=== PATIENT | male | born 1990 | race Caucasian/White ===

== ENCOUNTER 2018-08-30 21:47 | Emergency (ER) | payer BC, OTHER ==
--- NOTE | 2018-08-30 22:26 | ED Physician Documentation ---
Abdominal Pain - HISTORIAN Historian: patient - HPI Stated Complaint: RLQ pain Chief Complaint: Abdominal Pain Additonal Information: Patient presents to ED with complaints of RLQ abdominal pain since 0400 today. Patient states when he woke up this morning he had the pain and some mild nausea. The pain has not went away, it has not improved. He states the pain is worse with walking. He denies fever or chills. No previous surgeries. Onset: hours (16) Duration: constant Timing: still present Context: denies: out of country travel, bad food Severity: moderate Quality: pain, aching Associated Symptoms: nausea. denies: fever, chills, vomiting, diarrhea Exacerbated by: walking Relieved by: remaining still - ROS CONST: no problems GI/: none CVS/RESP: none EYES/ENT: none MS/SKIN/LYMPH: none NEURO/PSYCH: none - SOCIAL HX Smoking History: non-smoker Alcohol Use: none Drug Use: none - FAMILY HX Family History: none - PAST HX Past History: none Ischemic Bowel Risk Factors: none Other History: none Surgeries/Procedures: none Home Medications: Ambulatory Orders Medication Instructions Recorded NK 03/27/16 Allergies/Adverse Reactions: Allergies Allergy/AdvReac Type Severity Reaction Status Date / Time No Known Allergies Allergy Verified 08/30/18 22:02 - VITAL SIGNS Vital Signs: Vital Signs Temp Pulse Resp BP Pulse Ox 98.7 F 68 18 132/75 96 08/30/18 21:57 08/30/18 21:57 08/30/18 21:57 08/30/18 21:57 08/30/18 21:57 - REVIEWED ASSESSMENTS Nursing Assessment Reviewed: Yes Vitals Reviewed: Yes Progress - Results/Orders Results/Orders: UA - no blood, negative for infection - Progress Progress: 2320 Discussed results with Patient and the need for transfer for surgery. [facility] is their choice. 2334 Discussed with user support analyst supervisor, Rubalcava, for transfer 2339 Lunchroom Food Service Supervisor, Rubalcava, returned call. Dr. Joseph, Surgeon will accept patient. Strict NPO 2340 Discussed with patient, he wishes to go by private vehicle. ED Results Lab/Radiology - Lab Results Lab Results: Lab Results 08/30/18 08/30/18 08/30/18 22:22 22:22 22:05 WBC 8.60 K/ul K/ul (4.00-12.00) RBC 4.88 M/ul M/ul (3.90-5.20) Hgb 13.6 g/dL g/dL (12.0-18.0) Hct 41.2 % % (37.0-53.0) MCV 84.0 fl fl (80.0-100.0) MCH 27.9 pg L pg (28.0-34.0) MCHC 33.1 g/dL g/dL (30.0-36.0) RDW 12.9 % % (11.3-14.3) Plt Count 174 K/mm3 K/mm3 (130-400) Neut % (Auto) 58.1 % % (39.0-79.0) Lymph % (Auto) 33.2 % % (16.0-50.0) [place] % (Auto) 6.7 % % (0.0-11.0) Eos % (Auto) 1.5 % % (0.0-6.8) Baso % (Auto) 0.5 (0.0-1.5) Neut # (Auto) 5.0 # k/uL # k/uL (1.4-7.7) Lymph # (Auto) 2.9 # k/uL # k/uL (0.6-4.0) [place] # (Auto) 0.6 # k/uL # k/uL (0.0-0.9) Eos # (Auto) 0.1 # k/uL # k/uL (0.0-0.6) Baso # (Auto) 0.0 # k/uL # k/uL (0.0-0.5) Sodium 136 mmol/L mmol/L (136-145) Potassium 4.1 mmol/L mmol/L (3.5-5.1) Chloride 102 mmol/L mmol/L (98-107) Carbon Dioxide 29 mmol/L mmol/L (22-30) BUN 15 mg/dL mg/dL (9-20) Creatinine 1.09 mg/dL mg/dL (0.66-1.25) Estimated Creat Clear 153 Est GFR ( Amer) > 60 (60 - ) Est GFR (Non-Af Amer) > 60 (60 - ) Glucose 99 mg/dL mg/dL (74-106) Calcium 9.2 mg/dL mg/dL (8.4-10.2) Total Bilirubin 0.4 mg/dL mg/dL (0.2-1.3) AST 29 U/L U/L (15-46) ALT 43 U/L U/L (13-69) Alkaline Phosphatase 97 U/L U/L (38-126) Total Protein 6.8 g/dL g/dL (6.3-8.2) Albumin 4.3 g/dL g/dL (3.5-5.0) Urine Color Yellow (YELLOW) Urine Appearance Clear (CLEAR) Urine pH 6.5 (5.0 - 8.0) Ur Specific [place] 1.025 (1.010-1.030) Urine Protein Negative mg/dL mg/dL (NEGATIVE) Urine Ketones Negative mg/dL mg/dL (NEGATIVE) Urine Occult Blood Negative (NEGATIVE) Urine Nitrite Negative (NEGATIVE) Urine Bilirubin Negative (NEGATIVE) Urine Urobilinogen 1.0 Eu Eu (0.2-1.0) Ur Leukocyte Esterase Negative (NEGATIVE) Urine Glucose Negative mg/dL mg/dL (NEGATIVE) - Orders Orders: ED Orders Category Date Time Status Place IV Lock 1T Care 08/30/18 22:[address] ABD & PELVIS W/ CON Stat Exams 08/30/18 Taken CBC/PLATELET/DIFF Routine Lab 08/30/18 22:22 Completed CMP Routine Lab 08/30/18 22:22 Completed UA MACRO DIP ONLY Routine Lab 08/30/18 22:05 Completed Abdominal Pain Physical Exam - Physical Exam General Appearance: no acute distress, alert EENT: LYNN NECK: normal inspection, supple RESPIRATORY: no resp distress, chest non-tender, breath sounds normal CVS: reg rate & rhythm, heart sounds normal ABDOMEN: soft, normal bowel sounds, McBurney's point tenderne BACK: normal inspection, no CVA tenderness SKIN: warm/dry, normal color, other EXTREMITIES: non-tender NEURO: oriented X3, motor nml Vital Signs: Vital Signs Temp Pulse Resp BP Pulse Ox 98.7 F 68 18 132/75 96 08/30/18 21:57 08/30/18 21:57 08/30/18 21:57 08/30/18 21:57 08/30/18 21:57 Discharge Clincal Impression: Acute appendicitis Qualifiers: Acute appendicitis type: with localized peritonitis Appendicitis gangrene presence: without gangrene Appendicitis perforation presence: without perforation Appendicitis abscess presence: without abscess Qualified Code(s): K35.30 - Acute appendicitis with localized peritonitis, without perforation or gangrene Referrals: Primary Doctor,No [Primary Care Provider] - 2 Days Additional Instructions: 1. Nothing to eat or drink until after surgery 2. Go directly to [facility] for admission. Enter through the Emergency department. Go to the registration desk for room assignment. 3. Your surgery is scheduled for 6:00 a.m. 4. Follow up with PCP as directed by your surgeon, Dr. Joseph Disposition: ADMITTED INPATIENT Decision to Admit: [id number] Date of Decison to Admit: 08/30/18 Decision Time: 23:44
[2018-08-30 22:40] LABS: MEAN CORPUSCULAR HEMOGLOBIN 27.9 pg (28.0-34.0)
[2018-08-30 22:41] LABS: BASOPHILS % 0.5 (0.0-1.5); EOSINOPHILS % 1.5 % (0.0-6.8); MONOCYTES % 6.7 % (0.0-11.0)
[2018-08-30 22:42] LABS: APPEARANCE,URINE CLEAR (CLEAR); COLOR,URINE YELLOW (YELLOW); OCCULT BLOOD,URINE NEGATIVE (NEGATIVE); PH URINE 6.5 (5.0 - 8.0)
[2018-08-30 22:59] LABS: eGFR (Non-African) > 60
[2018-08-31 00:07] VITALS: BP 127/66
--- NOTE | 2018-08-31 04:32 | Diagnostic Imaging Report ---
WALT MALIK [facility] [id number] [facility] [address] [place], [place]. [address] Report Submission Date: Aug 30, 2018 11:16:16 PM ASSURANCE ENGINEER Patient Study Name: ISAIAH LEAL Date: Aug 30, 2018 10:57:44 PM ASSURANCE ENGINEER Modality Type: CT\SR Gender: M Description: CT ABD PELVIS W/ CON : 91 Institution: [facility] Physician: WALT MALIK Computed tomography abdomen pelvis with contrast History: 1 day right lower quadrant pain Findings: Transverse abdomen and pelvis sections are obtained after 93 mL intravenous Omnipaque 350. The lung bases are clear. The liver, gallbladder, kidneys, adrenals, pancreas, spleen, great vessels, and mesenteric structures are unremarkable. Bowel loops exhibit normal caliber and wall thickness. The lumbar spine is unremarkable. Pelvic sections reveal a 10 mm diameter, thick-walled, gasless appendix with periappendiceal inflammation. There is no abscess. The prostate, seminal vesicles, and urinary bladder are unremarkable. Several mildly enlarged inguinal lymph nodes are present bilaterally. Pelvic bowel loops are unremarkable. Impression: 1. Uncomplicated acute appendicitis without perforation. 2. Mild bilateral inguinal adenopathy of uncertain etiology. Electronically signed on Aug 30, 2018 11:16:16 PM ASSURANCE ENGINEER by: Ronaldo GRIFFITH
== END 2018-08-31 00:04 | disposition short-term general hospital (02) ==
LOC: ED 21:47
DX: K35.30 Acute appendicitis with localized peritonitis, without perforation or gangrene (principal)
CPT/HCPCS: 36415; 74177; 80053; 81002; 85025; 99285; Q9967; S1016